=== PATIENT | female | born 1990 | race Caucasian/White ===

== ENCOUNTER 2023-05-18 14:54 | Outpatient (AMB) | payer OTHER, SELFPAY ==
--- NOTE | 2023-05-18 15:07 | MHC.PC.OV ---
Vital Signs 05/18/23 15:08 Height 5 ft 8 in Weight 264 lb BMI 40.1 BP 108/74 Blood Pressure Location Rt brachial Position Sitting Respiration 13 Pulse 95 Pulse Source Pulse Oximeter Temp 97.1 F Temp Source Temporal Artery Scan Pulse Oximetry (%) 99 Oxygen Delivery Method Room Air Intake Visit Reasons: New patient-req physical Intake Note: Patient states that shes been experiencing abdominal cramps that last from 20 min to up to 4 hours. Patient states that she feels like she may have liquid in right ear for about ab out a month. 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 Worse about an hour after dinner or at bedtime. Tried Motrin. Sensation?of?fluid?in?her?R ear - modified with wiggling ear with finger. PMHx: Occassional GERD/Heartburn. SurgHx: Ingrown toenail. L forearm ORIF. FHx: Mom: HTN, HLD. Dad: Prostate CA. mGF: Breast CA SocHx: Nonsmoker. EtOH Infreq. 1-2. 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 1. Little interest or pleasure in doing things: several days 2. Feeling down, depressed, or hopeless: not at all 3. Trouble falling or staying asleep, or sleeping too much: several days 4. Feeling tired or having little energy: several days 5. Poor appetite or overeating: not at all 6. Feeling bad about yourself - or that you are a failure or have let yourself or your family down: not at all 7. Trouble concentrating on things, such as reading the newspaper or watching television: not at all 8. Moving or speaking so slowly that other people could have noticed. Or the opposite - being so fidgety or restless that you have been moving around a lot more than usual: not at all 9. Thoughts that you would be better off or of hurting yourself in some way: not at all Total score: 3 Depression Screening Interpretation: Negative Depression Screening Done: Yes 47068 - PHQ-9 Billing: Yes Source: Developed by Drs. Dario Alejandra, Jenniefr Gomez, Popeye Javier and colleagues, with an educational maru from [email or web address]. Thrive Questionnaire Date Thrive assessed: 05/18/23 I am a: Patient What is your living situation today?: I have a steady place to live Within the past 12 months, did the food you bought not last and you didn't have the money to get more?: Never true Within the past 12 months, did you worry whether your food would run out before you got money to buy more?: Never true Do you have trouble paying for medicines?: No Do you have trouble getting transportation to medical appointments?: No Do you have trouble paying your heating and electricity bill?: No Do you have trouble taking care of your child, family member or friend?: No Do you have trouble with day-to-day activities such as bathing, preparing meals, shopping, managing finances, etc.?: No Are you currently unemployed and looking for a job?: No Are you interested in more education?: No Please select the resources that you would like help with: None Currently or been in a relationship where the following occur: no concerns reported AUDIT C Alcohol Use Questionnaire (AUDIT-C) 1. How often do you have a drink containing alcohol?: 2-3 times a week 2. How many drinks containing alcohol do you have on a typical day when you are drinking?: 1 or 2 3. How often do you have six or more drinks on one occasion?: Never Total Score: 3 LUIS-7 AMB Questionnaire LUIS-7 Date LUIS - 7 assessed: 05/18/23 Feeling nervous, anxious, or on edge: 0 = Not at all Not being able to stop or control worryin = Not at all Worrying too much about different things: 0 = Not at all Trouble relaxin = Not at all Being so restless that it is hard to sit still: 0 = Not at all Becoming easily annoyed or irritable: 0 = Not at all Feeling afraid as if something awful might happen: 0 = Not at all Total LUIS-7 score (0-4 normal; 5-9 mild; 10-14 moderate; 15-21 severe): 0 Source: Developed by Drs. Dario Alejandra, Jennifer Gomez, Popeye Javier and colleagues, with an educational maru from [email or web address]. LUIS-7 Assessment Billing LUIS-7 Assessment Tool: LUIS-7 Assessment 08951 Physical exam (Primary Care) Vital Signs: Last Vital Signs Temp 97.1 F 05/18/23 15:08 Pulse 95 05/18/23 15:08 Resp 13 05/18/23 15:08 BP 108/74 05/18/23 15:08 Pulse Ox 99 05/18/23 15:08 Oxygen Delivery Method Room Air 05/18/23 15:08 BMI result Body Mass Index 40.1 Tobacco/Smoking Status: Tobacco use Status Tobacco use date assessed 05/18/23 05/18/23 15:22 Patient Tobacco Use Status Never used Tobacco 05/18/23 15:22 e-Cigarette/Vaping Use Never Used 05/18/23 15:22 PHQ-9: PHQ-9 Score PHQ-9: Total score 3 05/18/23 15:27 Depression Screening Interpretation: Negative Thrive Assessment: Date of Thrive Assessment Date Thrive assessed 05/18/23 05/18/23 15:27 Currently or been in a relationship where the following occur: no concerns reported Assessment and Plan Assessment & Plan (1) Epigastric pain: Code(s): R10.13 - Epigastric pain Plan: Epigastric?pain?which?she?notes?is?deep,?intermittent?and?possibly?associated?with?food.??She?also?notes?a?history?of?GERD. This?is?likely?gastritis?and?could?be?peptic?ulcer?disease?and?possible?H?pylori?infection. Will?give?her?omeprazole?and?check?H?pylori May?need?referral?to?GI Also?counseled?her?to?avoid?trigger?foods,?over?filling?her?stomach?and?eating?too?close?to?bedtime. (2) Eustachian tube dysfunction: Code(s): H69.90 - Unspecified Eustachian tube disorder, unspecified ear Plan: Trial?Flonase (3) Laboratory tests ordered as part of a complete physical exam (CPE): Code(s): Z00.00 - Encounter for general adult medical examination without abnormal findings Plan: Check?labs Orders: Orders Lipid Panel Today Z00.00 - Encounter for general adult medical examination without abnormal findings UA and rflx microscopic Today Z00.00 - Encounter for general adult medical examination without abnormal findings TSH reflex Free T4 Today Z00.00 - Encounter for general adult medical examination without abnormal findings CT NG by PCR Today Z11.3 - Encounter for screening for infections with a predominantly sexual mode of transmission HIV Ab/Ag Today Z11.3 - Encounter for screening for infections with a predominantly sexual mode of transmission Syphilis Screen Today Z11.3 - Encounter for screening for infections with a predominantly sexual mode of transmission H pylori Ag Stool Today R10.13 - Epigastric pain Comprehensive [employer]. Panel Fast Today Z00.00 - Encounter for general adult medical examination without abnormal findings Complete Blood Count Auto Diff Today Z00.00 - Encounter for general adult medical examination without abnormal findings Microalbumin, Random (w Creat) Today I10 - Essential (primary) hypertension Hepatitis B,C Profile Today Z11.3 - Encounter for screening for infections with a predominantly sexual mode of transmission Medications: New omeprazole 40 mg PO DAILY 30 days 30 caps 2RF fluticasone propionate 50 mcg/actuation (Flonase Allergy Relief) administer into each nostril 1 spray intranasal Q12H 30 days 16 grams 2RF Coding Level of Care Code New Pt Level 4 (49746) Diagnoses Epigastric pain R10.13 Eustachian tube dysfunction H69.90 Laboratory tests ordered as part of a complete physical exam (CPE) Z00.00 Additional Codes LUIS-7 Assessment Billing - LUIS-7 Assessment Tool: LUIS-7 Assessment 29888 ([id number])
[2023-05-18 15:08] VITALS: BP 108/74; PULSE 95; RESP 13; TEMP 36.2; O2SAT 99; BMI 40.1
== END 2023-05-18 16:15 | disposition home or self-care (01) ==
PROVIDERS: PCP Family Medicine; Visit Provider Family Medicine
DX: R10.13 Epigastric pain (principal); H69.90 Unspecified Eustachian tube disorder, unspecified ear; Z00.00 Encounter for general adult medical examination without abnormal findings
CPT/HCPCS: 99204

== ENCOUNTER 2023-05-23 10:37 | Outpatient (AMB) | payer OTHER, SELFPAY ==
[2023-05-23 10:46] VITALS: BP 118/66; PULSE 105; RESP 13; O2SAT 98; BMI 40.7
--- NOTE | 2023-05-23 10:46 | A.OFFPC_ITS ---
Vital Signs 05/23/23 10:46 Height 5 ft 8 in Weight 268 lb BMI 40.7 BP 118/66 Blood Pressure Location Lt brachial Position Sitting Respiration 13 Pulse 105 H Pulse Source Pulse Oximeter Pulse Oximetry (%) 98 Oxygen Delivery Method Room Air Intake Visit Reasons: bloody stools Intake Note: Patient is here to discuss loose, watery stools accompanied by cramping and bleeding. Patient states this started yesterday after taking omeprazole. 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 She reports loose, watery stools accompanied by cramping and bleeding. She reports this started yesterday after taking omeprazole. 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 Dario Alejandra, Jennifer Gomez, Popeye Javier and colleagues, with an educational maru from [employer]. Review of Systems Const Denies chills, Denies fatigue, Denies fever(s), Denies headache(s) and Denies weakness ENT Denies dizziness and Denies headache(s) Card Denies dyspnea Resp Denies cough, Denies dyspnea, Denies wheezing and Denies other (shortness of breath) GI Details: Blood in stool Reports loose stools Musc Denies numbness and Denies tingling Neuro Denies dizziness, Denies headache(s), Denies numbness, Denies tingling and Denies weakness Psych Denies anxiety and Denies depression Endo Denies fatigue Aller/Immun Denies wheezing Physical exam (Primary Care) Vital Signs: Last Vital Signs Pulse 105 H 05/23/23 10:46 Resp 13 05/23/23 10:46 BP 118/66 05/23/23 10:46 Pulse Ox 98 05/23/23 10:46 Oxygen Delivery Method Room Air 05/23/23 10:46 BMI result Body Mass Index 40.7 Tobacco/Smoking Status: Tobacco use Status Tobacco use date assessed 05/18/23 05/23/23 10:54 Patient Tobacco Use Status Never used Tobacco 05/23/23 10:54 e-Cigarette/Vaping Use Never Used 05/23/23 10:54 Thrive Assessment: Date of Thrive Assessment Date Thrive assessed 05/18/23 05/23/23 10:54 Const General: well developed; No acute distress Nutritional Appearance: well nourished Orientation/consciousness: patient oriented x3 HENMT Head: Yes normocephalic and Yes atraumatic Eyes General: appearance normal, both eyes and all related structures Pupils: Equal, round and reactive pupils present EOM: EOMs intact bilaterally Resp Effort & Inspection: normal respiratory effort Neuro General: patient oriented x3 and gait normal Cranial nerves: Yes Equal, round and reactive pupils present Psych Affect: normal affect Assessment and Plan Assessment & Plan (1) Watery stools: Code(s): R19.5 - Other fecal abnormalities Plan: Patient?had?had?epigastric?pain?last?week.??Now?having?watery?stools?as?well?as? blood?in?stool Possible?GI?infection?including?C?diff Check?GI?panel Referred?to?Gastroenterology?due?to?epigastric?pain?and?she?can?follow- up?with?them?if?not?resolving. (2) Blood in stool: Code(s): K92.1 - Melena Plan: As?above,?she?is?referred?to?GI Check?labs (3) Acid reflux: Code(s): K21.9 - Gastro-esophageal reflux disease without esophagitis Plan: Trial?famotidine.??She?did?not?tolerate?omeprazole Orders: Orders GI Panel Today K92.1 - Melena CDiff Gene PCR Today K92.1 - Melena Referrals Gastroenterology Referral K92.1 - Melena, R10.13 - Epigastric pain Medications: New famotidine 40 mg PO BID 30 days 60 tabs 0RF Discontinued omeprazole Discontinued Reason: Doctor's Order 40 mg PO DAILY 30 days 30 caps 2RF Coding Level of Care Code Est Pt Level 3 (64431) Diagnoses Watery stools R19.5 Blood in stool K92.1 Acid reflux K21.9
== END 2023-05-23 11:43 | disposition home or self-care (01) ==
PROVIDERS: PCP Family Medicine; Visit Provider Family Medicine
DX: K92.1 Melena (principal); K21.9 Gastro-esophageal reflux disease without esophagitis
CPT/HCPCS: 99213

== ENCOUNTER 2023-05-26 17:30 | Outpatient (REF) | payer OTHER, SELFPAY | END 2023-05-26 17:31 | disposition home or self-care (01) | LOC: HO.LNP 17:30 | PROVIDERS: Visit Provider Family Medicine | DX: Z13.89 Encounter for screening for other disorder (principal) ==

== ENCOUNTER 2023-05-27 07:40 | Outpatient (REF) | payer OTHER, SELFPAY ==
[2023-05-27 08:21] LABS: Basophils Percent Auto 0.5 % (0-2); Eosinophils Absolute Auto 0.1 X10*3/uL (0.0-0.4); Eosinophils Percent Auto 0.8 % (0-4); Hematocrit 37.9 % (37.0-47.0); Hemoglobin 12.8 g/dl (12.0-16.0); Imm Gran Abs Auto 0.03 X10*3/uL (0.00-0.03); Imm Gran Pct Auto 0.4 % (0.0-0.4); Lymphocytes Absolute Auto 3.5 X10*3/uL (1.2-4.9); Lymphocytes Percent Auto 41.1 % (20-40); MANUAL DIFF FLAG NO; Mean Corpuscular HGB Conc 33.8 g/dl (31.0-35.0); Mean Corpuscular Hemoglobin 28.7 pg (27.0-33.0); Mean Platelet Volume 9.3 fL (9.4-12.3); Monocytes Absolute Auto 0.6 X10*3/uL (0.1-1.2); Monocytes Percent Auto 6.5 % (2-11); Neutrophils Absolute Auto 4.3 x10*3/uL (2.0-8.3); Neutrophils Percent Auto 50.7 % (45-73); Platelet Count 334 X10*3/uL (160-400); Red Blood Count 4.46 X10*6/uL (4.20-5.50); White Blood Count 8.5 X10*3/uL (4.8-10.8)
[2023-05-27 09:04] LABS: Appearance Urine Clear; Color Urine Yellow; Glucose Urine UA Negative (Negative); Leukocyte Esterase Urine Negative (Negative); Nitrite Urine Negative (Negative); PH 6.5 (5.0-9.0); Specific Gravity - Urine 1.015 (1.005-1.025); Urine Blood Negative (Negative); Urine Ketones Negative (Negative); Urine Protein Negative (Neg-Trace)
[2023-05-27 09:43] LABS: Creatinine Urine 89.04 mg/dL; Microalbumin Urine < 5.0 mg/L
[2023-05-27 09:57] LABS: Alanine Aminotransferase 13 U/L (0-31); Albumin Level 3.8 g/dL (3.5-5.0); Alkaline Phosphatase 72 U/L (39-117); Anion Gap 14 (12-20); Aspartate Amino Transferase 12 U/L (5-31); Bilirubin Total 0.2 mg/dL (0.0-1.0); Blood Urea Nitrogen 7 mg/dL (9-16); Calcium 9.6 mg/dL (8.4-10.2); Carbon Dioxide 23 mmol/L (22-29); Chloride 104 mmol/L (96-108); Cholesterol 211 mg/dL (<200); Estimated Glomerular Filt Rate > 60; Glucose Fasting 88 mg/dL (60-99); HDL Cholesterol 73 mg/dL (>40); LDL Cholesterol Calculated 112 mg/dL (<100); Potassium 4.4 mmol/L (3.3-5.1); Sodium 137 mmol/L (135-145); Total Protein 7.5 g/dL (6.5-8.0); Triglycerides 131 mg/dL (<150)
[2023-05-27 10:11] LABS: TSH reflex Free T4 2.57 uIU/mL (0.32-4.0)
[2023-05-27 11:29] LABS: CDiff Gene PCR NEGATIVE (Negative)
[2023-05-27 15:22] LABS: Adenovirus F 40/41 Not Detected (Not Detect.); Astrovirus Not Detected (Not Detect.); Campylobacter Not Detected (Not Detect.); Cryptosporidium Not Detected (Not Detect.); Cyclospora cayetanensis Not Detected (Not Detect.); E. coli EAEC Not Detected (Not Detect.); E. coli EPEC Not Detected (Not Detect.); E. coli ETEC Not Detected (Not Detect.); E. coli STEC Not Detected (Not Detect.); Entamoeba histolytica Not Detected (Not Detect.); Giardia lamblia Not Detected (Not Detect.); Norovirus GI/GII Not Detected (Not Detect.); Plesiomonas shigelloides Not Detected (Not Detect.); Rotavirus A Not Detected (Not Detect.); Salmonella Not Detected (Not Detect.); Sapovirus Not Detected (Not Detect.); Shigella sp./EIEC Not Detected (Not Detect.); Vibrio Not Detected (Not Detect.); Vibrio Cholerae Not Detected (Not Detect.); Yersinia enterocolitica Not Detected (Not Detect.)
[2023-05-28 04:36] LABS: Syphilis Screen Nonreactive (Nonreactive)
[2023-05-28 05:03] LABS: HBS Num1 8.54 mIU/mL (0-7.99); HBc Num1 0.14 S/CO (0.00-0.79); HBsAGNum1 0.27 S/CO (0.00-0.99); HIV AB/AG Nonreactive (Nonreactive); HIV Num 1 0.05 S/CO (0.00-0.99); Hepatitis B Core Antibody Nonreactive (Nonreactive); Hepatitis B Surface Antigen Negative (Negative); ~HepC Num1 0.09 S/CO (0.00-0.79); ~Hepatitis C Antibody Nonreactive (Nonreactive)
[2023-05-28 06:25] LABS: HBS Num2 8.46 mIU/mL (0-7.99)
[2023-05-28 06:26] LABS: HBS Num3 8.98 mIU/mL (0-7.99); ~Hepatitis B Surface Antibody GRAYZONE (Nonreactive)
== END 2023-05-27 07:41 | disposition home or self-care (01) ==
LOC: HO.LAB 07:40
PROVIDERS: PCP Family Medicine; Visit Provider Family Medicine
DX: Z00.00 Encounter for general adult medical examination without abnormal findings (principal); R10.13 Epigastric pain; K92.1 Melena; I10 Essential (primary) hypertension; Z20.2 Contact with and (suspected) exposure to infections with a predominantly sexual mode of transmission
CPT/HCPCS: 80053; 80061; 81003; 82043; 82570; 84443; 85025; 86704; 86706; 86780; 86803; 87338; 87340; 87389; 87493; 87507

== ENCOUNTER 2023-07-19 11:00 | Outpatient (REF) | payer OTHER, SELFPAY ==
[2023-07-21 11:26] LABS: H Pylori Breath Test Negative (Negative)
== END 2023-07-19 11:01 | disposition home or self-care (01) ==
LOC: HO.LNP 11:00
PROVIDERS: PCP Family Medicine; Visit Provider Nurse Practitioner
DX: R10.10 Upper abdominal pain, unspecified (principal); R10.13 Epigastric pain
CPT/HCPCS: 83013

== ENCOUNTER 2023-07-19 11:00 | Outpatient (AMB) | payer OTHER, SELFPAY ==
[2023-07-19 11:17] VITALS: BP 140/85; PULSE 83; BMI 39.6
--- NOTE | 2023-07-19 11:17 | A.OFFVIS_ITS ---
Intake Vital Signs 07/19/23 11:17 Height 5 ft 8 in Weight 260 lb 2.327 oz BMI 39.6 BP 140/85 H Blood Pressure Location Rt brachial Position Sitting Pulse 83 Intake Visit Reasons: Epigastric pain Intake Note: New patient in office for epigastric pain. CC: Patient report severe cramping about twice a month since March. It usually last for 20 minutes or it could last several hours. Patient unsure of what's triggering pain. She also reports burning when having pain. She was placed on high dose of Omeprazole for 3 days and it resulted on lose, watery, and mucousy stools so it was d/c and she was switched to Famotidine for 30 days. Fresh Foods Clerk Required: No Accompanied by: Self / Same As Patient Allergies No Known Drug Allergies Allergy (Unknown, Verified 07/19/23 11:24) none rodent Allergy (Intermediate, Uncoded 05/23/23 10:51) Sneezing HPI Epigastric pain HPI Details 32-year-old female here for initial eval uation of epigastric pain. She is referred by Celestino Villa of [facility] [place] primary care. PMX GERD Eustachian tube dysfunction * SURGICAL HISTORY tympanoscopy tubes * ALLERGIES: NKDA * [employer] LABS: Laboratory Tests 05/26/23 05/27/23 05/27/23 17:30 07:44 07:44 WBC 8.5 Hgb 12.8 Hct 37.9 Plt Count 334 Estimated GFR Total Bilirubin AST ALT Alkaline Phosphata se TSH C. difficile Tox B Gene NEGATIVE Hep Bs Antigen Hep Bs Antibody Hep B Core Total A b Hepatitis C Ab (EI A) HIV 1&2 Ab/P24 Ag 4thGn 05/27/23 05/27/23 Unknown Unknown WBC Hgb Hct Plt Count Estimated GFR > 60 Total Bilirubin 0.2 AST 12 ALT 13 Alkaline Phosphata se 72 TSH 2.57 C. difficile Tox B Gene Hep Bs Antigen Negative Hep Bs Antibody GRAYZONE Hep B Core Total A b Nonreactive Hepatitis C Ab (EI A) Nonreactive HIV 1&2 Ab/P24 Ag 4thGn Nonreactive 05/27/23-1116 OTHR : ORDERED: GI Panel Test Result Flag Refere nce Campylobacter No t Detected Not Det ect. P. shigell oides Not Detected No t Detect. Salmo leroy Not Detect ed Not Detect. Vibrio Not D etected Not Detect . Vibrio Choler ae Not Detected Not D etect. Y. enter ocolit. Not Detected Not Detect. E. coli EAEC Not Dete cted Not Detect. E. coli EPEC Not Detected Not Dete ct. E. coli ETE C Not Detected Not Detect. E. col i STEC Not Detecte d Not Detect. E . coli O157 Not mando licable Not Detect. E. coli c ontaining the O157 antigen are a sub set of Shig a-like toxin-produ cing E. coli (STEC ). Shigella/EIEC Not Detected Not D etect. Cryptosp oridium Not Detected Not Detect. Cyc lospora Not Dete cted Not Detect. E. histolytica Not Detected Not Dete ct. Giardia rose blia Not Detected Not Detect. Adenov irus Not Detecte d Not Detect. A strovirus Not De tected Not Detect. Norovirus N ot Detected Not De tect. Rotavirus A Not Detected N ot Detect. Aditya virus Not Detec josiane Not Detect. TODAY'S VISI Onset in 03/2023 with small bouts of abd pain below the ribcage described as pressure and burning. Usually it is after eating, but no specific food implicated. She had 2 bouts that lasted several hours but with more severe pain. The pain feels central and spreads to either side. No N/V. No fevers. She really can not ID any exacerbating/remitting factors. Her usual bowel pattern is once every couple of days which has been all of her life. She had loose mucus stool only when she was on high dose omeprazole daily. She is unsure if this helps and she was switched to famotidine. This did not change the onset of 1-2 times a month. NO new medications during this time. No diet changes. Weight stable. There is no FHX of similar sx. I think will get an ultrasound an H pylori breath test, and do a trial of dicyclomine and simethicone. 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 Cognitive needs: No Hearing needs: No Vision needs: Yes Review of Systems Const Denies fatigue, Denies fever(s), Denies night sweats, Denies poor appetite and Denies weight loss Eyes Details: glasses Reports requires corrective lenses ENT Reports Normal hearing present, Denies dental pain, Denies dysphagia, Denies hearing loss, Denies mouth pain, Denies odynophagia, Denies throat swelling, Denies tongue swelling and Reports other (Dentition adequate) Card Reports no additional complaints Resp Reports no additional complaints GI Details: Reports abdominal pain, Denies melena, Denies bloating, Denies hematochezia, Denies constipation, Denies GI cramping, Denies dysphagia, Denies excessive flatus, Denies early satiety, Reports dyspepsia, Reports heartburn, Denies diarrhea, Reports loose stools, Denies nausea, Denies odynophagia, Denies vomiting and Denies hematemesis Skin/Breast Denies pruritus, Denies lesions, Denies rash and Denies jaundice Neuro Reports Normal hearing present and Denies Abnormal speech present Endo Denies fatigue Aller/Immun Denies throat swelling and Denies tongue swelling Physical Exam Vital Signs: Last Vital Signs Pulse 83 07/19/23 11:17 BP 140/85 H 07/19/23 11:17 BMI result Body Mass Index 39.6 Const General: cooperative, no acute distress, well developed and well groomed Nutritional Appearance: well nourished and obese Orientation/consciousness: oriented to person, oriented to place and oriented to time Limitations: No language barrier HEENT Head: Yes normocephalic and Yes atraumatic Eyes General: appearance normal, both eyes and all related structures Pupils: Equal, round and reactive pupils present Neck Neck: Yes normal visual inspection and Yes no lymphadenopathy Thyroid: Thyroid normal Resp Effort & Inspection: normal respiratory effort and able to speak in complete sentences Auscultation: clear to auscultation bilaterally Cardio Rate: regular rate Rhythm: regular rhythm Heart sounds: Normal, physiologic split S2 sound present Peripheral pulses: radial pulses present and posterior tibial pulses present GI Inspection: No distended, No Abdominal panniculus present and Yes obesity Palpation (GI): Soft to palpation, nontender, no guarding, not rigid and No hepatosplenomegaly present Percussion: Yes normal to percussion Auscultation: normal bowel sounds Rectal Exam - Female: deferred Skin General skin exam: no rashes or lesions noted, turgor normal, skin not dry, no jaundice, No spider nevi and no striae Rashes: no rashes Nails: normal Neuro General: oriented to person, oriented to place and oriented to time Cranial nerves: Yes Equal, round and reactive pupils present and Yes Normal hearing present Speech: No Abnormal speech present Extrem General: Yes normal to inspection, No clubbing, No cyanosis and No edema Psych Appearance: grossly normal and well kempt Mental Status: mental status grossly normal Speech and movement: Normal speech and movement present Affect: normal affect Attitude: cooperative Thought process: Normal thought process present and not confabulating Thought content: Normal thought content present Insight: Good insight present (Psych) Judgement: Good judgement present (Psych) Assessment & Plan Assessment & Plan (1) Upper abdominal pain: Code(s): R10.10 - Upper abdominal pain, unspecified (2) Epigastric pain: Code(s): R10.13 - Epigastric pain Plan Onset in 03/2023 with small bouts of abd pain below the ribcage described as pressure and burning. Usually it is after eating, but no specific food implicated. She had 2 bouts that lasted several hours but with more severe pain. The pain feels central and spreads to either side. No N/V. No fevers. She really can not ID any exacerbating/remitting factors. Her usual bowel pattern is once every couple of days which has been all of her life. She had loose mucus stool only when she was on high dose omeprazole daily. She is unsure if this helps and she was switched to famotidine. This did not change the onset of 1-2 times a month. NO new medications during this time. No diet changes. Weight stable. There is no FHX of similar sx. I think will get an ultrasound an H pylori breath test, and do a trial of dicyclomine and simethicone. Return office visit in 8 weeks Orders: Orders H Pylori Breath Test 07/19/23 R10.10 - Upper abdominal pain, unspecified, R10.13 - Epigastric pain US abdomen complete 07/19/23 R10.10 - Upper abdominal pain, unspecified, R10.13 - Epigastric pain Medications: New dicyclomine 20 mg PO QID 30 days 120 tabs 1RF simethicone after meals 180 mg PO QID 30 days 120 caps 3RF Coding Level of Care Code New Pt Level 3 (19118) Diagnoses Upper abdominal pain R10.10 Epigastric pain R10.13
== END 2023-07-19 12:47 | disposition home or self-care (01) ==
PROVIDERS: PCP Family Medicine; Visit Provider Nurse Practitioner
DX: R10.10 Upper abdominal pain, unspecified (principal); R10.13 Epigastric pain
CPT/HCPCS: 99203

== ENCOUNTER 2023-08-04 13:46 | Outpatient (AMB) | payer OTHER, SELFPAY ==
[2023-08-04 13:54] VITALS: BP 122/68; PULSE 76; O2SAT 99; BMI 40.3
--- NOTE | 2023-08-04 13:54 | MHC.PC.OV ---
Vital Signs 08/04/23 13:54 Height 5 ft 8 in Weight 265 lb BMI 40.3 BP 122/68 Blood Pressure Location Lt brachial Position Sitting Pulse 76 Pulse Source Pulse Oximeter Pulse Oximetry (%) 99 Oxygen Delivery Method Room Air Intake Visit Reasons: CPE with f/u labs and health maint. Intake Note: Patient is here for physical today and follow up on labs and health maintenance. Allergies No Known Drug Allergies Allergy (Unknown, Verified 08/04/23 13:56) none rodent Allergy (Intermediate, Uncoded 08/04/23 13:56) Sneezing Medication List - Last Reconciled 08/04/23 by Celestino Villa MD dicyclomine 20 mg PO QID 30 days etonogestrel-ethinyl estradiol 0.12-0.015 mg/24 hr (NuvaRing) 1 vag ring vaginal Q4W loratadine (Allergy Relief (loratadine)) 10 mg PO DAILY PRN simethicone 180 mg PO QID 30 days Tobacco use date assessed: 08/04/23 Dental Screening Dental Screen Date: 08/04/23 Did you have a dental visit in the last 12 months?: Yes Did you have a dental problem in the last 6 months where you did not have access to dental care?: No Was dental information given to patient?: Patient has dentist HPI CPE with f/u labs and health maint. HPI Details 33 y/o female presents for a CPE with f/u labs and health maintenance. No recent labs to review. HPI Comments History of Present Illness Details Documentation assistance for Celestino Villa MD, was provided by John Romero,? Belt Knife Feeder on 08/04/2023 2:18 PM EST. I, Dr. Villa, have read, observed, and verified documentation. 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 Dario Alejandra, Jennifer Gomez, Popeye Javier and colleagues, with an educational maru from [employer]. Review of Systems Const Denies chills, Denies fatigue, Denies fever(s), Denies headache(s) and Denies weakness Eyes Denies change in vision ENT Denies dizziness, Denies headache(s), Denies hearing loss, Denies nasal congestion, Denies sinus pain, Denies sinus pressure and Denies sore throat Card Denies chest pain, Denies lightheadedness, Denies dyspnea and Denies other (palpitations) Resp Denies cough, Denies dyspnea and Denies wheezing GI Denies abdominal pain, Denies melena, Denies hematochezia, Denies change in bowel habits, Denies dyspepsia and Denies nausea Denies hematuria and Denies dysuria Musc Denies abnormal gait, Denies myalgias, Denies arthralgias, Denies numbness and Denies tingling Skin/Breast Denies rash, Denies unusual bruising and Denies wounds Neuro Denies abnormal gait, Denies dizziness, Denies headache(s), Denies memory loss, Denies numbness, Denies Sensory deficit (Neuro), Denies tingling and Denies weakness Psych Denies anxiety, Denies depression and Denies memory loss Endo Denies cold intolerance, Denies fatigue, Denies heat intolerance, Denies polydipsia and Denies polyuria Ajred/Lymph Denies easy bleeding and Denies easy bruising Aller/Immun Denies wheezing Physical exam (Primary Care) Vital Signs: Last Vital Signs Pulse 76 08/04/23 13:54 BP 122/68 08/04/23 13:54 Pulse Ox 99 08/04/23 13:54 Oxygen Delivery Method Room Air 08/04/23 13:54 BMI result Body Mass Index 40.3 Tobacco/Smoking Status: Tobacco use Status Tobacco use date assessed 08/04/23 08/04/23 13:59 Patient Tobacco Use Status Never used Tobacco 08/04/23 13:59 e-Cigarette/Vaping Use Never Used 08/04/23 13:59 Thrive Assessment: Date of Thrive Assessment Date Thrive assessed 05/18/23 08/04/23 13:59 Const General: no acute distress, well developed, alert and awake Nutritional Appearance: well nourished Orientation/consciousness: patient oriented x3 HENMT Head: Yes normocephalic and Yes atraumatic Ears: hearing grossly normal bilaterally and TM's normal bilaterally General nose exam: Normal external nose present and Normal nares present Mouth: Normal oral and palatal mucosa present and moist mucous membranes Teeth and gingiva: dentition normal Throat: Yes posterior oropharynx normal Eyes General: appearance normal, both eyes and all related structures Pupils: Equal, round and reactive pupils present and Pupil accommodation reflex normal EOM: EOMs intact bilaterally Neck Neck: Yes normal visual inspection, Yes no lymphadenopathy and Yes trachea midline Thyroid: Thyroid normal Carotids: no bruits Lymphatic: no lymphadenopathy noted Chest Chest palpation & inspection: normal inspection of the chest Resp Effort & Inspection: normal respiratory effort Auscultation: clear to auscultation bilaterally Cardio Rate: regular rate Rhythm: regular rhythm Heart sounds: S1 normal heart sound present, S2 normal heart sound present, no gallops, no murmurs and no rubs Bruits: no abdominal aortic bruits and no carotid bruits GI Palpation (GI): No Abdominal aortic bruit present, Soft to palpation, nontender, No hepatosplenomegaly present and No Rebound tenderness present Auscultation: normal bowel sounds General: Yes no CVA tenderness Back/Spine/Pelvis Back: no CVA tenderness Cervical Spine: cervical ROM normal and No Cervical spine tenderness Thoracic/Lumbar Spine: thoraco-lumbar ROM normal, No pain with thoraco-lumbar ROM, No thoracic spinal tenderness and No lumbar spinal tenderness Skin Lesions: no lesions Rashes: no rashes Trauma: no lacerations or abrasions Wounds: no wounds Nails: normal Neuro General: patient oriented x3 Cranial nerves: Yes Equal, round and reactive pupils present Cognition (Neuro): normal cognition Gait exam (Neuro): Normal gait present Motor exam (neuro): 5/5 motor strength present throughout Sensory Exam: No Sensory deficit (Neuro) Deep tendon reflexes (DTR's): Right patellar reflex intensity grade: 2+ and Left patellar reflex intensity grade: 2+ Extrem General: Yes normal to inspection and No edema Psych Appearance: grossly normal Affect: normal affect Attitude: cooperative Thought process: Normal thought process present Assessment and Plan Assessment & Plan (1) Adult general medical examination: Code(s): Z00.00 - Encounter for general adult medical examination without abnormal findings Plan: 33-year-old?female?presents?for?complete?physical?exam Encouraged?healthy?diet?with?active?lifestyle?and?plenty?of?exercise (2) Screening for cervical cancer: Code(s): Z12.4 - Encounter for screening for malignant neoplasm of cervix Plan: Followed?by?[facility]?for?Pap?smears?and?had?a?Pap?smear?in?May?which?was?negative Follow-up?with?[facility] obgyn?as?recommended (3) Upper abdominal pain: Code(s): R10.10 - Upper abdominal pain, unspecified Plan: Patient?has?been?seen?by?Gastroenterology?and?is?prescribed?dicyclomine?and?simethicone. Strategy?to?take?these?medications?when?she?is?having?flare-up?of?abdominal?discomfort?but?she?says?that?since?that?time?she?has?not?had?discomfort?so?has?not?tried?the?medication?yet. She?has?follow-up?with?GI Orders: Orders Comprehensive [place]. Panel Fast Today Z00.00 - Encounter for general adult medical examination without abnormal findings Lipid Panel Today Z00.00 - Encounter for general adult medical examination without abnormal findings Microalbumin, Random (w Creat) Today I10 - Essential (primary) hypertension TSH reflex Free T4 Today Z00.00 - Encounter for general adult medical examination without abnormal findings UA and rflx microscopic Today Z00.00 - Encounter for general adult medical examination without abnormal findings Coding Level of Care Code Est Pt Level 3 (23218) Est Pt Prev Care 18-39y(10970) Diagnoses Adult general medical examination Z00.00 Screening for cervical cancer Z12.4 Upper abdominal pain R10.10
== END 2023-08-04 14:29 | disposition home or self-care (01) ==
PROVIDERS: PCP Family Medicine; Visit Provider Family Medicine
DX: Z00.00 Encounter for general adult medical examination without abnormal findings (principal); R10.10 Upper abdominal pain, unspecified
CPT/HCPCS: 99395

== ENCOUNTER 2023-08-08 08:22 | Outpatient (REF) | payer OTHER, SELFPAY ==
--- NOTE | ~2023-08-08 | US_ITS ---
EXAMINATION: US ABDOMEN COMPLETE CLINICAL INFORMATION: Upper abdominal pain, unspecified. COMPARISON: None available. TECHNIQUE: Real-time imaging of the abdominal viscera. Limited visualization due to bowel gas and body habitus. FINDINGS: PANCREAS: Limited visualization of pancreatic tail and head. Imaged portion of pancreatic body is unremarkable. ABDOMINAL AORTA: Limited visualization. INFERIOR VENA CAVA: Visualized portions are normal. LIVER: Increased hepatic parenchymal heterogeneity and echogenicity could be associated with hepatocellular disease/hepatic steatosis and substantially limits visualization. Correlation with liver function tests and clinical exam recommended to determine further management. GALLBLADDER: Multiple shadowing gallstones in the gallbladder. Gallbladder is contracted and shadowing from gallstones limits visualization. COMMON BILE DUCT: Normal in caliber measuring 0.5 cm in diameter. RIGHT KIDNEY: No hydronephrosis or renal calculi. The kidney measures 10.7 cm in maximum dimension. 0.4 x 0.3 x 0.4 cm echogenic cortical right renal midpole mass, possibly an angiomyolipoma. Limited visualization. LEFT KIDNEY: No hydronephrosis. No renal calculi. Limited visualization. The kidney measures 11.6 cm in maximum dimension. SPLEEN: Normal. The spleen measures 11.4 cm in maximum dimension. FREE FLUID: None. US/US abdomen complete IMPRESSION: Cholelithiasis.
== END 2023-08-08 08:23 | disposition home or self-care (01) ==
LOC: HO.US 08:22
PROVIDERS: PCP Family Medicine; Visit Provider Nurse Practitioner
DX: R10.10 Upper abdominal pain, unspecified (principal); R10.13 Epigastric pain
CPT/HCPCS: 76700

== ENCOUNTER → 2023-08-25 10:55 | Outpatient (REF) | payer OTHER, SELFPAY ==
--- NOTE | ~2023-08-25 | NM_ITS ---
EXAMINATION: BILIARY TRACT IMAGING STUDY CLINICAL INFORMATION: Calculus of gallbladder without cholecystitis or obstruction.. COMPARISON: No previous biliary scan is available for comparison. Abdominal ultrasound dated 08/08/2023 is available for comparison.. TECHNIQUE: Serial gamma scintillation camera images were obtained over the abdomen for a total observation period 2 hours following the intravenous administration of 5 mCi Tc-99m Mebrofenin. Because the gallbladder does not visualize until late into the study, no CCK stimulation was administered. FINDINGS: There is good concentration of activity in the liver by 5 minutes post injection. Biliary activity is visualized by 15 minutes. Small bowel is well visualized by 20 minutes. The gallbladder is not visualized throughout most of the study, but it approximately 105 minutes there begins to be some gallbladder visualization. At the end of the study there is diffuse small bowel activity and almost complete clearance of activity from the liver and persistent activity in the gallbladder. NM/NM hepatobiliary wo pharm IMPRESSION: Visualization the gallbladder is evidence of a patent cystic duct and strong evidence against the diagnosis of acute cholecystitis. However, late visualization of the gallbladder, well after 1 hour post injection is abnormal. This is most commonly due to chronic cholecystitis. The common bile duct is patent. Liver function appears normal.
== END ==
LOC: HO.NUCMED 10:55
PROVIDERS: PCP Family Medicine; Visit Provider Nurse Practitioner
DX: K80.20 Calculus of gallbladder without cholecystitis without obstruction (principal); R10.10 Upper abdominal pain, unspecified
CPT/HCPCS: 78226; A9537

== ENCOUNTER 2023-09-13 10:59 | Outpatient (AMB) | payer OTHER, SELFPAY ==
[2023-09-13 11:05] VITALS: BP 138/83; PULSE 80; BMI 40.7
--- NOTE | 2023-09-13 11:05 | A.OFFVIS_ITS ---
Vital Signs 09/13/23 11:05 Height 5 ft 8 in Weight 267 lb 10.259 oz BMI 40.7 BP 138/83 Blood Pressure Location Lt brachial Position Sitting Pulse 80 Intake Visit Reasons: 8 week follow up Intake Note: April returns to in office follow up for epigastric pain and Ultrasound results. CC: Patient states she haven't had any flare ups since last visit but is trying to figure out what the game plan is. Lion Trainer Required: No Accompanied by: Self / Same As Patient Allergies No Known Drug Allergies Allergy (Unknown, Verified 09/13/23 11:11) none rodent Allergy (Intermediate, Uncoded 08/04/23 13:56) Sneezing HPI HPI 8 week follow up: Details: Assessment & Plan (1) Upper abdominal pain: Code(s): R10.10 - Upper abdominal pain, unspecified (2) Epigastric pain: Code(s): R10.13 - Epigastric pain Plan Onset in 03/2023 with small bouts of abd pain below the ribcage described as pressure and burning. Usually it is after eating, but no specific food implicated. She had 2 bouts that lasted several hours but with more severe pain. The pain feels central and spreads to either side. No N/V. No fevers. She really can not ID any exacerbating/remitting factors. Her usual bowel pattern is once every couple of days which has been all of her life. She had loose mucus stool only when she was on high dose omeprazole daily. She is unsure if this helps and she was switched to famotidine. This did not change the onset of 1-2 times a month. NO new medications during this time. No diet changes. Weight stable. There is no FHX of similar sx. I think will get an ultrasound an H pylori breath test, and do a trial of dicyclomine and simethicone. Return office visit in 8 weeks Orders: Orders H Pylori Breath Test 07/19/23 R10.10 - Upper abdominal pain, unspecified, R10.13 - Epigastric pain US abdomen complete 07/19/23 R10.10 - Upper abdominal pain, unspecified, R10.13 - Epigastric pain Medications: New dicyclomine 20 mg PO QID 30 days 120 tabs 1RF simethicone after meals 180 mg PO QID 30 days 120 caps 3RF Labs: Laboratory Tests 07/19/23 12:46 H. pylori Breath Test Negative ULTRASOUND OF THE ABDOMEN 08/09/23 FINDINGS: PANCREAS: Limited visualization of pancreatic tail and head. Imaged portion of pancreatic body is unremarkable. ABDOMINAL AORTA: Limited visualization. INFERIOR VENA CAVA: Visualized portions are normal. LIVER: Increased hepatic parenchymal heterogeneity and echogenicity could be associated with hepatocellular disease/hepatic steatosis and substantially limits visualization. Correlation with liver function tests and clinical exam recommended to determine further management. GALLBLADDER: Multiple shadowing gallstones in the gallbladder. Gallbladder is contracted and shadowing from gallstones limits visualization. COMMON BILE DUCT: Normal in caliber measuring 0.5 cm in diameter. RIGHT KIDNEY: No hydronephrosis or renal calculi. The kidney measures 10.7 cm in maximum dimension. 0.4 x 0.3 x 0.4 cm echogenic cortical right renal midpole mass, possibly an angiomyolipoma. Limited visualization. LEFT KIDNEY: No hydronephrosis. No renal calculi. Limited visualization. The kidney measures 11.6 cm in maximum dimension. SPLEEN: Normal. The spleen measures 11.4 cm in maximum dimension. FREE FLUID: None. US/US abdomen complete IMPRESSION: Cholelithiasis. HIDA SCAN 08/25/23 IMPRESSION: Visualization the gallbladder is evidence of a patent cystic duct and strong evidence against the diagnosis of acute cholecystitis. However, late visualization of the gallbladder, well after 1 hour post injection is abnormal. This is most commonly due to chronic cholecystitis. The common bile duct is patent. Liver function appears normal. CORRESPONDENCE On 08/09/23 @ 11:50 Usha Huber Wrote To Usha Huber (2) She has gallstones, this may be the reason for her pain. I will send a trial fo creon (this sometimes helps for a while) and she will need to avoid fatty foods and I also will order a HIDA scan to further evaluate if this is the cause of her pain. Please call and advise patient. On 08/09/23 @ 11:42 System Wrote To Usha Huber Results added. Task updated. TODAY'S VISIT She has not had another attack since I last saw her, she was rutherford ving them twice a month and she feels that the Pancreaze helped her. She has not had to use the bentyl or simethicone. I am referring to gen surgery since HIDA scan indicated chronic cholecystitis. ROV [address] 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 Cognitive needs: No Hearing needs: No Vision needs: Yes Review of Systems Const Denies fatigue, Denies fever(s), Denies night sweats, Denies poor appetite and Denies weight loss Eyes Details: glasses Reports requires corrective lenses ENT Reports Normal hearing present, Denies dental pain, Denies dysphagia, Denies hearing loss, Denies mouth pain, Denies odynophagia, Denies throat swelling, Denies tongue swelling and Reports other (Dentition adequate) Card Reports no additional complaints Resp Reports no additional complaints GI Details: Reports abdominal pain, Denies melena, Reports bloating, Denies hematochezia, Denies constipation, Denies GI cramping, Denies dysphagia, Denies excessive flatus, Denies early satiety, Reports heartburn, Denies diarrhea, Denies nausea, Denies odynophagia, Denies vomiting and Denies hematemesis Skin/Breast Denies pruritus, Denies lesions, Denies rash and Denies jaundice Neuro Reports Normal hearing present and Denies Abnormal speech present Endo Denies fatigue Aller/Immun Denies throat swelling and Denies tongue swelling Physical Exam Vital Signs: Last Vital Signs Pulse 80 09/13/23 11:05 BP 138/83 09/13/23 11:05 BMI result Body Mass Index 40.7 Const General: cooperative, no acute distress, well developed and well groomed Nutritional Appearance: well nourished and obese Orientation/consciousness: oriented to person, oriented to place and oriented to time Limitations: No language barrier HEENT Head: Yes normocephalic and Yes atraumatic Eyes General: appearance normal, both eyes and all related structures Pupils: Equal, round and reactive pupils present Neck Neck: Yes normal visual inspection and Yes no lymphadenopathy Thyroid: Thyroid normal Resp Effort & Inspection: normal respiratory effort and able to speak in complete sentences Auscultation: clear to auscultation bilaterally Cardio Rate: regular rate Rhythm: regular rhythm Heart sounds: Normal, physiologic split S2 sound present Peripheral pulses: radial pulses present and posterior tibial pulses present GI Inspection: No distended, Yes Abdominal panniculus present and Yes obesity Palpation (GI): Soft to palpation, nontender, no guarding, not rigid and No hepatosplenomegaly present Percussion: Yes normal to percussion Auscultation: normal bowel sounds Rectal Exam - Female: deferred Skin General skin exam: no rashes or lesions noted, turgor normal, skin not dry, no jaundice, No spider nevi and no striae Rashes: no rashes Nails: normal Neuro General: oriented to person, oriented to place and oriented to time Cranial nerves: Yes Equal, round and reactive pupils present and Yes Normal hearing present Speech: No Abnormal speech present Extrem General: Yes normal to inspection, No clubbing, No cyanosis and No edema Psych Appearance: grossly normal and well kempt Mental Status: mental status grossly normal Speech and movement: Normal speech and movement present Affect: normal affect Attitude: cooperative Thought process: Normal thought process present and not confabulating Thought content: Normal thought content present Insight: Fair insight present (Psych) Judgement: Fair judgement present (Psych) Results Reviewed Results Reviewed: Laboratory Tests 07/19/23 12:46 H. pylori Breath Test Negative ULTRASOUND OF THE ABDOMEN 08/09/23 FINDINGS: PANCREAS: Limited visualization of pancreatic tail and head. Imaged portion of pancreatic body is unremarkable. ABDOMINAL AORTA: Limited visualization. INFERIOR VENA CAVA: Visualized portions are normal. LIVER: Increased hepatic parenchymal heterogeneity and echogenicity could be associated with hepatocellular disease/hepatic steatosis and substantially limits visualization. Correlation with liver function tests and clinical exam recommended to determine further management. GALLBLADDER: Multiple shadowing gallstones in the gallbladder. Gallbladder is contracted and shadowing from gallstones limits visualization. COMMON BILE DUCT: Normal in caliber measuring 0.5 cm in diameter. RIGHT KIDNEY: No hydronephrosis or renal calculi. The kidney measures 10.7 cm in maximum dimension. 0.4 x 0.3 x 0.4 cm echogenic cortical right renal midpole mass, possibly an angiomyolipoma. Limited visualization. LEFT KIDNEY: No hydronephrosis. No renal calculi. Limited visualization. The kidney measures 11.6 cm in maximum dimension. SPLEEN: Normal. The spleen measures 11.4 cm in maximum dimension. FREE FLUID: None. US/US abdomen complete IMPRESSION: Cholelithiasis. HIDA SCAN 08/25/23 IMPRESSION: Visualization the gallbladder is evidence of a patent cystic duct and strong evidence against the diagnosis of acute cholecystitis. However, late visualization of the gallbladder, well after 1 hour post injection is abnormal. This is most commonly due to chronic cholecystitis. The common bile duct is patent. Liver function appears mare Assessment & Plan Assessment & Plan (1) Gallstones: Code(s): K80.20 - Calculus of gallbladder without cholecystitis without obstruction Category: Medical (2) Upper abdominal pain: Code(s): R10.10 - Upper abdominal pain, unspecified Category: Medical (3) GERD (gastroesophageal reflux disease): Code(s): K21.9 - Gastro-esophageal reflux disease without esophagitis Category: Medical Plan She has not had another attack since I last saw her, she was rutherford ving them twice a month and she feels that the Pancreaze helped her. She has not had to use the bentyl or simethicone. I am referring to gen surgery since HIDA scan indicated chronic cholecystitis. ROV 3 mon. Orders: Referrals General Surgery Referral K80.20 - Calculus of gallbladder without cholecystitis without obstruction Medications: Refilled [id number] 37,[id number],[id number] 149,900 unit (Pancreaze) administer with meals and/or snacks 2 caps PO BID 120 caps 6RF K80.20 - Calculus of gallbladder without cholecystitis without obstruction, R10.10 - Upper abdominal pain, unspecified [id number],[id number],[id number] 149,900 unit (Pancreaze) administer with meals and/or snacks 2 caps PO BID 120 caps 6RF K80.20 - Calculus of gallbladder without cholecystitis without obstruction, R10.10 - Uppe r abdominal pain, unspecified Coding Level of Care Code Est Pt Level 3 (47177) Diagnoses Gallstones K80.20 Upper abdominal pain R10.10 GERD (gastroesophageal reflux disease) K21.9
== END 2023-09-13 11:34 | disposition home or self-care (01) ==
PROVIDERS: PCP Family Medicine; Visit Provider Nurse Practitioner
DX: K80.20 Calculus of gallbladder without cholecystitis without obstruction (principal); R10.10 Upper abdominal pain, unspecified; K21.9 Gastro-esophageal reflux disease without esophagitis
CPT/HCPCS: 99213

== ENCOUNTER → 2023-09-13 10:59 | Outpatient (BNVA) | payer OTHER, SELFPAY | PROVIDERS: PCP Family Medicine; Visit Provider Nurse Practitioner ==

== ENCOUNTER 2023-10-04 14:31 | Outpatient (AMB) | payer OTHER, SELFPAY ==
--- NOTE | 2023-10-04 14:32 | A.OFFVIS_ITS ---
Vital Signs 10/04/23 14:39 Height 5 ft 8 in Weight 268 lb 6 oz BMI 40.8 BP 141/84 H Blood Pressure Location Lt brachial Position Sitting Pulse 87 Intake Visit Reasons: Calculus of GB Intake Note: Patient is seen in office for evaluation and treatment of the gallbladder. Pt c/o: onset 03/2023 mild flare ups, burning sensation in the RUQ, had ultrasound and HIDA scan, minor nausea, upset stomach and diarrhea Second Vp Hr Assessment Required: No Allergies No Known Drug Allergies Allergy (Unknown, Verified 10/04/23 14:38) none rodent Allergy (Intermediate, Uncoded 10/04/23 14:38) Sneezing HPI Comments Details: Patient presents with a several month history of right upper quadrant/epigastric pain. She has had extensive workup for this including sonogram and HIDA scan demonstrating cholelithiasis and biliary dyskinesia. Patient otherwise tolerating her diet. He is regular bowel habits. He has never been jaundiced before. Chart was reviewed and patient evaluated [facility] Medical History (Updated 09/13/23 @ 11:20 by VLADIMIR Siu) Laboratory tests ordered as part of a complete physical exam (CPE) Blood in stool Screening for cervical cancer Adult general medical examination Surgical History No pertinent past surgical history Family History Mother High blood pressure Father Prostate cancer Alcoholism Maternal Grandfather Breast cancer Social History Housing: House Patient Tobacco Use Status: Never used Tobacco e-Cigarette/Vaping Use: Never Used service: No Current occupational status: employed 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 Eyes Other: Anicteric Chest Other: Chest breath sounds bilaterally, HS 1 in 2 GI Other: Abdomen corpulent, soft, benign Assessment & Plan Assessment & Plan (1) Gallstones: Code(s): K80.20 - Calculus of gallbladder without cholecystitis without obstruction Category: Surgical (2) Biliary colic: Code(s): K80.50 - Calculus of bile duct without cholangitis or cholecystitis without obstruction Category: Surgical Plan Risks, benefits, alternatives laparoscopic possible open cholecystectomy reviewed with the patient included but not limited to bleeding, infection, recurrence of symptoms, numbness, pain, scarring, bowel or bile duct injury or leak and the patient wishes to proceed. All questions answered. Arrangements were made for this. Coding Level of Care Code New Pt Level 5 (48329) Diagnoses Gallstones K80.20 Biliary colic K80.50
[2023-10-04 14:39] VITALS: BP 141/84; PULSE 87; BMI 40.8
== END 2023-10-04 15:02 | disposition home or self-care (01) ==
LOC: HO.HGS 14:31
PROVIDERS: PCP Family Medicine; Referring Provider Nurse Practitioner; Visit Provider Surgery
DX: K80.20 Calculus of gallbladder without cholecystitis without obstruction (principal); K80.50 Calculus of bile duct without cholangitis or cholecystitis without obstruction
CPT/HCPCS: 99204

== ENCOUNTER → 2023-10-04 14:31 | Outpatient (BNVA) | payer OTHER, SELFPAY | PROVIDERS: PCP Family Medicine; Referring Provider Nurse Practitioner; Visit Provider Surgery ==

== ENCOUNTER 2023-11-03 08:15 | Day surgery (SDC) | payer OTHER, SELFPAY ==
[2023-10-31 14:28] VITALS: BMI 40.3
--- NOTE | 2023-11-01 10:20 | P.CONAN_ITS ---
Documented by User: Petty Seo NP 11/01/23 10:21 HPI - Anesthesia Eval Consult details Narrative: 33yo F for Cholecystectomy Laparoscopic,possible open PMFSH Active Problems Active Problems: All Active Problems Biliary colic (Acute) GERD (gastroesophageal reflux disease) (Acute) Gallstones (Acute) Upper abdominal pain (Acute) Eustachian tube dysfunction (Acute) Epigastric pain (Acute) Past Medical History Medical History Screening for cervical cancer Adult general medical examination Blood in stool Laboratory tests ordered as part of a complete physical exam (CPE) Family History Family History Mother High blood pressure Father Prostate cancer Alcoholism Maternal Grandfather Breast cancer Surgical History Surgical History Hx of wisdom tooth extraction Social History Social History Housing: House Patient Tobacco Use Status: Never used Tobacco e-Cigarette/Vaping Use: Never Used Use of substances other than those prescribed or required for medical reasons: Yes Substance Use Type Other:: edibles Substance Use Frequency: Occasionally Are you DNR?: No Advance Directives: No Advance Directives Information Provided: Yes service: No Current occupational status: employed 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 Cognitive needs: No Hearing needs: No Vision needs: Yes Meds Allergies Allergy/AdvReac Type Severity Reaction Status Date / Time No Known Drug Allergies Allergy Unknown none Verified 11/03/23 08:56 rodent Allergy Intermediate Sneezing Uncoded 10/04/23 14:38 Home Medications ?Medication ?Instructions ?Recorded ?Confirmed ?Last Taken ?Type etonogestrel 0.12 mg-ethinyl 1 vag ring vaginal Q4W 05/18/23 11/03/23 Unknown History estradiol 0.015 mg/24 hr vaginal ring (NuvaRing) loratadine 10 mg disintegrating 10 mg PO DAILY PRN Allergy Symptoms 07/19/23 11/03/23 Unknown History tablet (Allergy Relief (loratadine)) Exam Height,Weight and Vital Signs: Height 5 ft 8 in Weight 120.202 kg Pertinent Lab Results Pertinent Lab Results: Laboratory Tests 05/27/23 05/27/23 07:44 Unknown WBC 8.5 Hgb 12.8 Hct 37.9 Plt Count 334 Sodium 137 Potassium 4.4 Chloride 104 Carbon Dioxide 23 BUN 7 L Creatinine 0.82 Assessment and Plan Assessment Anesthesia Assessment: Chart Reviewed Documented by User: Rani Hansen MD 11/03/23 09:22 [facility] Past Medical History Medical History Screening for cervical cancer Adult general medical examination Blood in stool Laboratory tests ordered as part of a complete physical exam (CPE) Family History Family History Mother High blood pressure Father Prostate cancer Alcoholism Maternal Grandfather Breast cancer Surgical History Surgical History Hx of wisdom tooth extraction History of Problems with Anesthesia: No Social History Social History Housing: House Patient Tobacco Use Status: Never used Tobacco e-Cigarette/Vaping Use: Never Used Use of substances other than those prescribed or required for medical reasons: Yes Substance Use Type Other:: edibles Substance Use Frequency: Occasionally Are you DNR?: No Advance Directives: No Advance Directives Information Provided: Yes service: No Current occupational status: employed 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 Cognitive needs: No Hearing needs: No Vision needs: Yes Meds Allergies Allergy/AdvReac Type Severity Reaction Status Date / Time No Known Drug Allergies Allergy Unknown none Verified 11/03/23 08:56 rodent Allergy Intermediate Sneezing Uncoded 10/04/23 14:38 Home Medications ?Medication ?Instructions ?Recorded ?Confirmed ?Last Taken ?Type etonogestrel 0.12 mg-ethinyl 1 vag ring vaginal Q4W 05/18/23 11/03/23 Unknown History estradiol 0.015 mg/24 hr vaginal ring (NuvaRing) loratadine 10 mg disintegrating 10 mg PO DAILY PRN Allergy Symptoms 07/19/23 0 11/03/23 Unknown History tablet (Allergy Relief (loratadine)) Exam Airway Mallampati Class: II TM Dist: >3cm Neck ROM: Full Loose/Missing/Broken Teeth: No Heart: RRR Lungs: CTA Assessment and Plan Assessment Anesthesia Assessment: Anesthesia Plan Discussed Final Anesthetic Review History of Problems with Anesthesia: No NPO: Yes ASA Class: III Final Preanesthetic Review: Meds/Allgs Chart Reviewed, Consent Obtained/Reviewed and Anes Risks/Benef Reviewed Patient Risk: Intermediate Procedure Risk: Intermediate Anesthetic Plan Anesthetic Plan: GA Disposition: Standard PACU
--- NOTE | 2023-11-02 12:24 | MHC.SHP ---
Pre-Procedural Eval Section A - 24 Hr Update-Section A only Date of Service: 11/03/23 The patient is an INPATIENT: No Changes since office visit: No Cold of Flu in the past 2 weeks, No New Medical Problems, No Changes in Medication and No Patient answered all questions Section B - Complete if H&P > 30 days Chief Complaint: calculus of gallbladder and bile duct Allergies: Allergies Allergy/AdvReac Type Severity Reaction Status Date / Time No Known Drug Allergies Allergy Unknown none Verified 10/04/23 14:38 rodent Allergy Intermediate Sneezing Uncoded 10/04/23 14:38 Plan I have reviewed the history and physical and performed a pertinent physical examination on my patient. No changes have occurred unless specified. Time Spent With Patient Time: Total time managing care of this patient today ____ minutes.
[2023-11-03 08:24] VITALS: BMI 40.0
[2023-11-03 08:32] VITALS: BP 133/78; PULSE 82; RESP 15; TEMP 36.8; O2SAT 95
[2023-11-03 08:50] LABS: UPreg QC Valid YES; Urine Pregnancy NEGATIVE (NEGATIVE)
[2023-11-03] MEDS: Lactated Ringers 1,000 ML 100 ML IVCONT (08:54)
[2023-11-03] MEDS: Scopolamine 1.5 MG PATCH.TD.3 TRANSDERMA (09:26)
--- NOTE | 2023-11-03 11:06 | W.PM.OPN ---
Operative Note Operative Note Date of Service: 11/03/23 Narrative: Preoperative diagnosis: [] Symptomatic gallbladder Postop diagnosis: [] The same Procedure [] laparoscopic cholecystectomy Surgeon: [] Marcos Roll Line Operator: [] Emily Type of Anesthesia: [] General Indication for surgery: [] Very corpulent abdomen. Gallbladder with omental adhesions to it. Gallbladder with multiple gallstones. Intrahepatic gallbladder. Procedure; Patient was brought to the operating room, placed on operative table in supine position, after an adequate level of general anesthesia was induced, the patient's abdomen was prepped and draped in usual sterile fashion. Using a supraumbilical curvilinear incision, Perkins technique was used to insufflate abdominal cavity to 15 mm of CO2. Upper midline and right subcostal ports were placed under direct laparoscopic view, the patient placed in reverse Trendelenburg position, and tilted to the left. Findings were as noted above. Soft omental adhesions swept off the gallbladder with the hilum was approached. Common bile duct was identified and preserved throughout the procedure. Cystic artery and cystic duct were each identified, circumferentially skeletonized, traced directly into the gallbladder, and critical view obtained. Each was clipped proximally x2, distally x1, and transected. Gallbladder which was very intrahepatic was then cauterized in the gallbladder fossa using Bovie. Specimen was placed in an Endo-Catch bag, a retrieved through the umbilical port. Abdominal cavity was very copiously irrigated, and secured for hemostasis. All ports removed under direct laparoscopic view. Wounds were closed in the following manner; umbilical wound is fascia reapproximated using interrupted 0 Vicryl sutures. Skin wounds were closed using subcuticular 4-0 Vicryl sutures followed by Steri-Strips and sterile dressings. Wounds were infiltrated 0.5% Marcaine at completion. Sponge, needle, and instrument counts reported correct. Patient tolerated the procedure well and emerged from anesthesia stable condition. EBL minimal
[2023-11-03 11:13] VITALS: BP 160/90; PULSE 96; RESP 16; TEMP 36.6; O2SAT 98
[2023-11-03 11:15] VITALS: BP 134/79; PULSE 90; RESP 16; O2SAT 98
[2023-11-03 11:20] VITALS: BP 129/84; PULSE 88; RESP 16; O2SAT 98
[2023-11-03 11:25] VITALS: BP 133/82; PULSE 72; RESP 16; O2SAT 98
[2023-11-03 11:40] VITALS: BP 140/81; PULSE 81; RESP 16; TEMP 36.6; O2SAT 96
== END 2023-11-03 12:22 | disposition home or self-care (01) ==
PROVIDERS: Nurse Practitioner; PCP Family Medicine; Visit Provider Surgery
PROC: 0FT44ZZ Resection of Gallbladder, Percutaneous Endoscopic Approach (ICD-10-PCS; CPT 47562; principal; 2023-11-03 10:20)
DX: K80.64 Calculus of gallbladder and bile duct with chronic cholecystitis without obstruction (principal); K82.8 Other specified diseases of gallbladder; E65 Localized adiposity; Q44.1 Other congenital malformations of gallbladder
CPT/HCPCS: 47562; 81025; 88304; J0690; J1100; J1885; J2250; J2405; J2704; J2795; J3010

== ENCOUNTER → 2023-11-03 08:15 | Outpatient (BNV) | payer OTHER, SELFPAY | PROVIDERS: PCP Family Medicine; Visit Provider Surgery | DX: K80.20 Calculus of gallbladder without cholecystitis without obstruction (principal) | CPT/HCPCS: 47562 ==

== ENCOUNTER 2023-11-13 10:32 | Outpatient (AMB) | payer OTHER, SELFPAY ==
--- NOTE | 2023-11-13 10:34 | A.OFFVIS_ITS ---
Intake Visit Reasons: S/P lap donny Intake Note: Patient here s/p lap donny. Reports incisions healing well. Patient c/o: no concerns. No longer taking rx pain meds. SX: 11-03-2023. Hospital Medical Assistant Required: No Accompanied by: Self / Same As Patient Allergies No Known Drug Allergies Allergy (Unknown, Verified 11/13/23 10:35) none rodent Allergy (Intermediate, Uncoded 11/13/23 10:35) Sneezing HPI Comments Details: Patient presents for follow-up. Mild incisional discomfort. Tolerating diet. Having regular bowel habits. Increasing her activity level. [facility] Medical History Screening for cervical cancer Adult general medical examination Blood in stool Laboratory tests ordered as part of a complete physical exam (CPE) Surgical History (Updated 11/13/23 @ 10:52 by Yosvany Rodríguez MD) History of laparoscopic cholecystectomy (11/03/23) Hx of wisdom tooth extraction Family History Mother High blood pressure Father Prostate cancer Alcoholism Maternal Grandfather Breast cancer Social History Housing: House Patient Tobacco Use Status: Never used Tobacco e-Cigarette/Vaping Use: Never Used service: No Current occupational status: employed 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 All wounds clean dry and intact healing well Assessment & Plan Assessment & Plan (1) Status post laparoscopic cholecystectomy: Code(s): Z90.49 - Acquired absence of other specified parts of digestive tract Category: Medical Plan Patient has been given local instructions including avoiding strenuous activities for next few weeks time and will otherwise follow-up p.r.n.. All questions answered Coding Level of Care Code Global (83928) Diagnoses Status post laparoscopic cholecystectomy Z90.49
== END 2023-11-13 10:45 | disposition home or self-care (01) ==
LOC: HO.HGS 10:32
PROVIDERS: PCP Family Medicine; Visit Provider Surgery
DX: Z90.49 Acquired absence of other specified parts of digestive tract (principal)
CPT/HCPCS: 99024

== ENCOUNTER → 2023-11-13 10:32 | Outpatient (BNVA) | payer OTHER, SELFPAY | PROVIDERS: PCP Family Medicine; Visit Provider Surgery ==

== ENCOUNTER 2023-12-20 10:58 | Outpatient (AMB) | payer OTHER, SELFPAY ==
[2023-12-20 11:01] VITALS: BP 124/72; PULSE 82; BMI 40.4
--- NOTE | 2023-12-20 11:01 | A.OFFVIS_ITS ---
Vital Signs 3 12/20/23 11:01 Height 5 ft 8 in Weight 265 lb 14.04 oz BMI 40.4 BP 124/72 Blood Pressure Location Lt brachial Position Sitting Pulse 82 Intake Visit Reasons: 3 month follow up Intake Note: April returns to in office follow up for epigastric pain. CC: Patient states that she has been doing well since she had her gallbladder removed. Denies having any GI concerns today. 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 Accompanied by: Self / Same As Patient Allergies No Known Drug Allergies Allergy (Unknown, Verified 12/20/23 11:02) none rodent Allergy (Intermediate, Uncoded 11/13/23 10:35) Sneezing HPI HPI 3 month follow up: Details: Assessment & Plan (1) Gallstones: Code(s): K80.20 - Calculus of gallbladder without cholecystitis without obstruction Category: Medical (2) Upper abdominal pain: Code(s): R10.10 - Upper abdominal pain, unspecified Category: Medical (3) GERD (gastroesophageal reflux disease): Code(s): K21.9 - Gastro-esophageal reflux disease without esophagitis Category: Medical Plan She has not had another attack since I last saw her, she was r[place] ving them twice a month and she feels that the Pancreaze helped her. She has not had to use the bentyl or simethicone. I am referring to gen surgery since HIDA scan indicated chronic cholecystitis. ROV 3 mon. Orders: Referrals General Surgery Referral K80.20 - Calculus of gallbladder without cholecystitis without obstruction Medications: Refilled [id number] 37,000-97,[id number] 149,900 unit (Pancreaze) administer with meals and/or snacks 2 caps PO BID 120 caps 6RF K80.20 - Calculus of gallbladder without cholecystitis without obstruction, R10.10 - Upper abdominal pain, unspecified [id number] 37,000-97,300- 149,900 unit (Pancreaze) administer with meals and/or snacks 2 caps PO BID 120 caps 6RF K80.20 - Calculus of gallbladder without cholecystitis without obstruction, R10.10 - Upper abdominal pain, unspecified TODAY'S VISIT She is about 6 weeks s/p donny and is doing well. She had a few episodes of diarrhea, but this is resolving. 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 ROV 3 mos. If she sustains her remission of symptoms and she no longer needs to follow-up with Gastroenterology intake continue with her primary care provider. 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 Cognitive needs: No Hearing needs: No Vision needs: Yes Review of Systems Const Denies fatigue, Denies fever(s), Denies night sweats, Denies poor appetite and Denies weight loss Eyes Details: glasses Reports requires corrective lenses ENT Reports Normal hearing present, Denies dental pain, Denies dysphagia, Denies hearing loss, Denies mouth pain, Denies odynophagia, Denies throat swelling, Denies tongue swelling and Reports other (Dentition adequate) Card Reports no additional complaints Resp Reports no additional complaints GI Details: Denies abdominal pain, Denies melena, Denies bloating, Denies hematochezia, Denies constipation, Denies GI cramping, Denies dysphagia, Denies excessive flatus, Denies early satiety, Denies heartburn, Denies diarrhea, Reports loose stools, Denies nausea, Denies odynophagia, Denies vomiting and Denies hematemesis Skin/Breast Denies pruritus, Denies lesions, Denies rash and Denies jaundice Neuro Reports Normal hearing present and Denies Abnormal speech present Endo Denies fatigue Aller/Immun Denies throat swelling and Denies tongue swelling Physical Exam Vital Signs: Last Vital Signs Pulse 82 12/20/23 11:01 BP 124/72 12/20/23 11:01 BMI result Body Mass Index 40.4 Const General: cooperative, no acute distress, well developed and well groomed Nutritional Appearance: well nourished and obese Orientation/consciousness: oriented to person, oriented to place and oriented to time Limitations: No language barrier HEENT Head: Yes normocephalic and Yes atraumatic Eyes General: appearance normal, both eyes and all related structures Pupils: Equal, round and reactive pupils present Neck Neck: Yes normal visual inspection and Yes no lymphadenopathy Thyroid: Thyroid normal Resp Effort & Inspection: normal respiratory effort and able to speak in complete sentences Auscultation: clear to auscultation bilaterally Cardio Rate: regular rate Rhythm: regular rhythm Heart sounds: Normal, physiologic split S2 sound present Peripheral pulses: radial pulses present and posterior tibial pulses present GI Inspection: No distended, Yes Abdominal panniculus present and Yes obesity Palpation (GI): Soft to palpation, nontender, no guarding, not rigid and No hepatosplenomegaly present Percussion: Yes normal to percussion Auscultation: normal bowel sounds Rectal Exam - Female: deferred Abdomen image: 2 1. well healing surgical scars 2. 3. Skin General skin exam: no rashes or lesions noted, turgor normal, skin not dry, no jaundice, No spider nevi and no striae Rashes: no rashes Nails: normal Neuro General: oriented to person, oriented to place and oriented to time Cranial nerves: Yes Equal, round and reactive pupils present and Yes Normal hearing present Speech: No Abnormal speech present Extrem General: Yes normal to inspection, No clubbing, No cyanosis and No edema Psych Appearance: grossly normal and well kempt Mental Status: mental status grossly normal Speech and movement: Normal speech and movement present Affect: normal affect Attitude: cooperative Thought process: Normal thought process present and not confabulating Thought content: Normal thought content present Insight: Fair insight present (Psych) Judgement: Fair judgement present (Psych) Assessment & Plan Assessment & Plan (1) GERD (gastroesophageal reflux disease): Code(s): K21.9 - Gastro-esophageal reflux disease without esophagitis Category: Medical (2) Gallstones: Code(s): K80.20 - Calculus of gallbladder without cholecystitis without obstruction Category: Surgical (3) Status post laparoscopic cholecystectomy: Code(s): Z90.49 - Acquired absence of other specified parts of digestive tract Category: Surgical Plan She is about 6 weeks s/p donny and is doing well. She had a few episodes of diarrhea, but this is resolving. 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 ROV 3 mos. If she sustains her remission of symptoms and she no longer needs to follow-up with Gastroenterology intake continue with her primary care provider. Coding Level of Care Code Est Pt Level 3 (83617) Diagnoses GERD (gastroesophageal reflux disease) K21.9 Gallstones K80.20 Status post laparoscopic cholecystectomy Z90.49
== END 2023-12-20 11:23 | disposition home or self-care (01) ==
PROVIDERS: PCP Family Medicine; Visit Provider Nurse Practitioner
DX: K21.9 Gastro-esophageal reflux disease without esophagitis (principal); K80.20 Calculus of gallbladder without cholecystitis without obstruction; Z90.49 Acquired absence of other specified parts of digestive tract
CPT/HCPCS: 99213

== ENCOUNTER → 2023-12-20 10:58 | Outpatient (BNVA) | payer OTHER, SELFPAY | PROVIDERS: PCP Family Medicine; Visit Provider Nurse Practitioner ==